=== PATIENT | male | born 1985 | race Caucasian/White ===

== ENCOUNTER 2025-07-30 22:45 | Emergency (ER) | payer OTHER ==
[~2025-07-30] VITALS: Ht 177.8 cm; Wt 83.5 kg
[~2025-07-30 22:45] MED LIST: CEPHALEXIN500 M1 PO; MOTRIN800 MG PO; SUBOXONE 8 MG-1 EACH SL; VICODIN 500 MG-1 TAB PO
[2025-07-30] MEDS ORDERED: NAPROXEN 375 MG TAB PO ONE (23:55)
[2025-07-31] MEDS ORDERED: NAPROXEN 250 MG TAB PO ONE (00:45)
[2025-07-31] MEDS ORDERED: MELOXICAM15 MG PO (01:40)
== END 2025-07-31 01:46 | disposition home or self-care (01) ==
LOC: ED 22:45
DX: S89.92XA Unspecified injury of left lower leg, initial encounter (principal); Z88.6 Allergy status to analgesic agent; Z79.899 Other long term (current) drug therapy; X50.1XXA Overexertion from prolonged static or awkward postures, initial encounter; Y93.89 Activity, other specified; Y92.818 Other transport vehicle as the place of occurrence of the external cause; Y99.8 Other external cause status